=== PATIENT | male | born 1970 | race Caucasian/White ===

== ENCOUNTER 2020-04-12 08:45 | Outpatient (CLI) | payer OTHER, SELFPAY ==
[2020-04-13 22:57] LABS: SARS-CoV-2 RNA Undetected (Undetected); SARS-CoV-2 Specimen Source Nasopharynx
== END 2020-04-12 09:05 ==
PROVIDERS: Visit Provider Internal Medicine
DX: Z11.59 Encounter for screening for other viral diseases (principal)
CPT/HCPCS: U0003

== ENCOUNTER 2022-10-13 08:18 | Day surgery (SDC) | payer BC, SELFPAY ==
[2022-10-13] VITALS (42 sets, daily range): BP systolic 124–137; BP diastolic 74–87; PULSE 65–79; RESP 13–18; TEMP 36.6–37; O2SAT 94–100; BMI 29.5
--- NOTE | 2022-10-13 08:29 | W.ED.GENAD ---
Discharge Plan Disposition Patient Disposition: Admit to [facility] Condition: Stable Discharge Details Clinical Impression: Fracture dislocation of right ankle Attending Provider: Rajesh Vergara Primary Care Provider: Unknown,Unknown ED Provider: Mina Fernández Medical Decision Making Patient presenting with slip and fall with obvious fracture/dislocation of the right ankle. He is neurovascularly intact. He denies pain elsewhere and has unremarkable exam otherwise. He has not ate since last night. He has no significant past medical history other than hypercholesterolemia and ACL repair on the left. He received 10 of morphine in the field. IV is in place. Fluids started. X-rays ordered. Discussed with orthopedics, pending x-rays may just take directly to the OR. Patient received 100 mcgs of fentanyl here. X-rays obtained and confirmed fracture dislocation with bimalleolar fracture per my read. EKG interpreted by me, sinus rhythm with normal axis and normal EKG. Discussed with Dr. Vergara. Will reduce here in splint and he will plan OR later this afternoon. Discussed with patient. Hematoma block performed by me. Repeat dose of fentanyl 100 mcg given. Dislocation reduced by me without complication. Patient remains neurovascularly intact. Posterior splint applied. Postreduction films pending. Patient will be kept n.p.o. and given maintenance fluids until OR this afternoon. Post reduction film shows medial malleolus bone fragment remains in the joint space. Talus remains subluxed but not completely dislocated and there is better alignment laterally. However, clearly not a complete reduction. Patient is more comfortable. He remains neurovascularly intact. He has been taken to day surgery for preop. Imaging Data Radiologic Study: Attestation: I personally reviewed and interpreted this imaging study as follows: Imaging: X-Ray My impression: bimalleolar fracture with dislocation right ankle ECG Data Attestation: I personally reviewed and interpreted this ECG (s) as follows: Prior ECG tracings: not available for review Interpretation: see EKG HPI General Mode of arrival: EMS. Date/Time Provider Initiated Documentation: 10/13/22 08:26. Limitations to Documentation: no limitations. Information obtained by: patient. HPI Narrative: Patient presents to the ED status post slip and fall on the ice. Patient sustained injury to the right ankle with obvious deformity. EMS has given him 10 of morphine and splinted right lower extremity. Patient denies striking his head. He denies any other injury or pain elsewhere. He has not had anything orally since last night. Related Data Home Medications Medication Instructions Recorded Confirmed simvastatin 40 mg tablet 40 mg PO DAILY 10/13/22 10/13/22 Allergies Allergy/AdvReac Type Severity Reaction Status Date / Time Penicillins Allergy Unknown Unverified 10/13/22 10:25 General Stated Complaint: Orthopedic NATALIA: 2 Review of Systems Narrative: per HPI PFSH All Active Problems (Updated 10/13/22 @ 08:53 by Mina Fernández MD) Fracture dislocation of right ankle (Acute) Medical History (Updated 10/13/22 @ 08:53 by Mina Fernández MD) Hypercholesterolemia Surgical History S/P ACL repair Social History Smoking/Tobacco Use Status: Never Smoking risk assessment performed?: Yes Alcohol Intake: current Alcohol Intake frequency: holidays/special occasions only Drug use: Never Substance use type: does not use Do you feel safe at home: Yes Do you feel safe in your relationship?: Yes Exam Narrative Exam Narrative: Const: WDWN male in NAD. HEENT: NC/AT. Normal facial exam. Eyes: Normal conjunctiva and sclera. Neck: Supple. Trachea midline. Lungs: Normal respiratory effort. Cor: RRR. Good distal pulses. Neuro: A+O x 3. Normal speech, mentation, gait. Cranial nerves II - XII grossly intact. No gross motor or sensory deficit. Ext: No C/C/E. Obvious deformity with likely fracture-dislocation of right ankle. NVI with sensation, strength and pulses. Proximal RLE normal. Skin: Warm and dry without wound. Course Vital Signs Vital signs: Respiratory Effort Normal, Non-Labored 10/13/22 08:20 Procedures Orthopedic Joint Reduction Joint #1: Time Out Performed: Yes Side: right Joint Reduction Location: ankle Analgesia: hematoma block Local Anesthesia: Lidocaine 1% and Bupivicaine 0.5% Amount of anesthesic used (mL): 12 Technique used: traction/counter-traction Post-reduction neuro exam: intact Post-reduction vascular: intact Post Reduction X-Ray Obtained: Yes Post Reduction X-Ray Results: other (remains subluxed with bone fragment lying in joint space) Splint Applied: Yes Patient Tolerated Procedure: well and no complications Orthopedic Splinting/Casting Injury #1: Side: right Lower Extremity Injury Location: ankle Lower Extremity Immobilizer: posterior splint PAWSS Have you Been Recently Intoxicated or Drunk Within the Last 30 days?: No Have you Ever Experienced Previous Episodes of Alcohol Withdrawal?: No Have you ever Experienced Withdrawal Seizures?: No Have you ever Experienced Delirium Tremens(DT)s?: No Have you ever undergone Alcohol Rehabilitation Treatment (i.e, inpt ot outpatient treatment programs)?: No Have you ever Experienced Blackouts?: No Have you ever Combined Alcohol with other Downers within the last 90 days?: No Have you ever Combined Alcohol with any other Substance of Abuse during the last 90 days?: No Positive Blood Alcohol level on Presentation? [PCS.BAL]: No Evidence of Increased Autonomic Activity (i.e. HR>120, tremor, sweating, agitation, nausea)?: No Result: 0
[2022-10-13] MEDS: Lactated Ringers 1,000 ML 200 ML IV (08:34)
--- NOTE | 2022-10-13 08:34 | DI.RAD_ITS ---
Exam(s) XR ANKLE RT 2V EXAM: XR ANKLE RT 2V CLINICAL HISTORY: Injury W/ deformity. TECHNIQUE: 2D digital imaging was performed of the right ankle. Two images were obtained. AP and l ateral views were obtained. COMPARISON: No exams were available for comparison FINDINGS: BONES: There is an acute oblique fracture through the distal fibula with lateral and posterior angula tion of the distal fracture. There is also medially displaced fracture through the base of the media l malleolus. No bony destructive lesion is seen. JOINTS: There is a posterior and lateral dislocation of the ankle. SOFT TISSUE: There is soft tissue swelling of the ankle. IMPRESSION: Bimalleolar fracture dislocation of the ankle. DATA REPOSITORY: RADIATION DOSE DELIVERED:
[2022-10-13] MEDS: fentaNYL 100 MCG/2 ML VIAL IVP ×2 (08:41→09:30)
--- NOTE | 2022-10-13 08:45 | RT.EKG_ITS ---
APPROVED REPORT Exam: Resting ECG Reason for Exam: pre-op Patient Location: E HR:71 bpm ECG Measurements Heart Rate 71 AXIS ID 144 P 51 QRSd 94 QRS -19 QT 410 T 9 QTc 444 Conclusion Sinus rhythm...normal P axis, V-rate 60- 99 Normal [place] I have reviewed and interpreted ECG and agree with software generated interpretation. Normal Electrocardiogram
--- NOTE | 2022-10-13 09:09 | NUR.NOTE ---
pts PO intake was last night
--- NOTE | 2022-10-13 09:10 | W.ORTHOCONSU ---
Date of service: 10/13/22 Time of Service: 12:00 Assessment and Plan Assessment and plan (1) Fracture dislocation of right ankle: Status: Acute Assessment and plan: 52-year-old male with right ankle fracture dislocation Patient describes slip and fall this morning injuring right ankle with obvious deformity. Skin was tenting in the emergency department where they attempted reduction, which was marginally successful in reducing the joint but did take pressure off the skin. Prior ambulator, active, no prior ankle issues or problems. Denies any medical problems. Review of systems negative. Rash to penicillin in the past. Right leg foot and ankle examined around emergency room posterior small splint. Significant numbness deep peroneal nerves first webspace. Otherwise only mild numbness largely intact plantar foot tibial nerve and remainder of superficial peroneal nerve dorsal foot. Able to demonstrate intact motor wiggling all toes weakly. No acute distress or significant discomfort with passive stretch. Splint left on, will examine skin and operating room. Proximal leg knee and remainder of body without injury. Right ankle x-rays reviewed showing lateral ankle dislocation with fracture of medial and lateral malleoli. The medial malleolus is possibly incarcerated in the joint. There is questionably widening at the tib-fib joint at about the level of the fracture which is at the syndesmosis. It is difficult to scrutinize the posterior malleolus given the dislocation, but I do not appreciate any significant posterior malleolus fracture. Discussed thoroughly with patient. Need for right ankle reduction and fixation for complex fracture dislocation. He is comfortable at this time. No signs of compartment syndrome. Skin pressure was apparently removed after partial ER reduction. Will need to monitor nerve injury probably neuropraxia from stretch given dislocation of deep peroneal nerve expecting resolution with time. Plan for discharge home later today as long as remains comfortable and appropriate with instructions for strict elevation through the weekend. Decision to proceed with surgery today right ankle and possibly syndesmosis ORIF The risks, benefits, and alternatives were thoroughly discussed. Patient was counseled regarding pain management, expected postoperative course, and recovery timeline. All questions were answered. Informed consent was obtained. Agree and understand treatment plan. Follow up 10-14 days after surgery. Will call if any changes or concerns. Breathing comfortably on room air. No coughs or wheezes. 2+ right radial pulse. Regular rate and rhythm. PFSH All Active Problems (Updated 10/13/22 @ 12:45 by Rajesh Vergara MD) Fracture dislocation of right ankle (Acute 10/13/22) Medical History (Updated 10/13/22 @ 12:45 by Rajesh Vergara MD) Hypercholesterolemia Surgical History S/P ACL repair Social History Smoking/Tobacco Use Status: Never Smoking risk assessment performed?: Yes Alcohol Intake: current Alcohol Intake frequency: holidays/special occasions only Alcohol type: beer, wine and hard liquor Drug use: Never Substance use type: does not use Details: alcohol: t-1, one beer Do you feel safe at home: Yes Do you feel safe in your relationship?: Yes
--- NOTE | 2022-10-13 09:30 | DI.RAD_ITS ---
Exam(s) XR ANKLE RT 2V EXAM: XR ANKLE RT 2V CLINICAL HISTORY: post reduction. TECHNIQUE: 2D digital imaging was performed of the right ankle. Three images were obtained. AP and lateral views were obtained. COMPARISON: CR XR ANKLE RT 2V from 10/13/2022 FINDINGS: BONES: There has been some improvement in the alignment of the right ankle fracture dislocation but t here is persistent posterior dislocation of the ankle noted. There is persistent displacement of the distal fibular and medial malleolar fractures. No bony destructive lesion is seen. JOINTS: The ankle mortise is normally aligned. SOFT TISSUE: There is soft tissue swelling of the ankle. IMPRESSION: The there has been some improvement of the right ankle fracture dislocation there is persistent of sanchez bluxation of the tibial talar joint as described above. DATA REPOSITORY: RADIATION DOSE DELIVERED:
--- NOTE | 2022-10-13 09:40 | NUR.NOTE ---
pts right ankle reduced by MD Fernández, this RN present and assisted with procedure. sensation and pulse intact. pt able to move toes. splint in place until surgery.
--- NOTE | 2022-10-13 09:59 | NUR.NOTE ---
report called to [employer]
--- NOTE | 2022-10-13 10:03 | NUR.NOTE ---
pt last voided at 0700 this am
[2022-10-13 10:11] LABS: Source Nasal/Nares
--- OUTSIDE RECORDS SUMMARY | 2022-10-13 10:12 | XMS_ITS ---
Author Name Mary Alice Taqueria Address [address], [place] [id number] [facility] Address [address], [place] [id number] Care Team Providers Care Automation Engineering Manager Name Role Phone Taqueria Wheat Unavailable [phone] PROBLEMS Type Condition ICD9-CM Code [id number] Code Onset Dates Condition Status SNOMED Code Problem Pure hypercholesterolemia, unspecified E78.00 Active 823623887 Problem Gastro-esophageal re flux disease without esophagitis K21.9 Active 317769842 Problem Pure hypercholesterolemia 272.0 Active 8724387 04 Problem Pure hypercholesterolemia E78.0 Active 0288052 04 ALLERGIES Substance Reaction Event Type Date Status Penicillin G Benzathine Unknown Drug Allergy Feb, Active ENCOUNTERS Encounter Location Date Diagnosis [facility] [address] [place] [id number] Feb, Fever, unspecified R50.9 [facility] [address] [id number] Dec, Encounter for general adult medical examination without abnormal findings Z00.00 ; Pure hypercholesterolemia, unspecified E78.00 and Disorder of the skin and subcutaneous tissue, unspecified L98.9 [facility] [address] [id number] Jun, Pure hypercholesterolemia, unspecified E78.00 [facility] [address] [id number] 13 Dec, 2020 Encounter for general adult medical examination without abnormal findings Z00.00 and Pure hypercholesterolemia, unspecified E78.00 [facility] [address] [place] [id number] Apr, Contact with and (suspected) exposure to other viral communicable diseases Z20.828 [facility] [address] [place] [id number] Dec, Encounter for general adult medical examination without abnormal findings Z00.00 and Pure hypercholesterolemia, unspecified E78.00 [facility] [address] [place] [id number] Jul, Acute bronchitis, unspecifie d J20.9 and Encounter for immunization Z23 [facility] [address] [place] [id number] Apr, [facility] [address] [place] [id number] Nov, Encounter for general adult medical examination with abnormal findings Z00.01 ; Pure hypercholesterolemia, unspecified E78.00 and Sprain of right rotator cuff capsule, initial encounter S43.421A [facility] [address] [place] [id number] Dec, [facility] [address] [place] [id number] Nov, Encounter for general adult medical examination with abnormal findings Z00.01 ; Pure hypercholesterolemia, unspecified E78.00 and Gastro-esophageal reflux disease without esophagitis K21.9 [facility] [address] [place] [id number] Nov, Pure hypercholesterolemia E7 8.0 and Encounter for general adult medical examination without abnormal findings Z00.00 [facility] [address] [place] [id number] Oct, Encounter for general adult medical examination without abnormal findings Z00.00 and Pure hypercholesterolemia E78.0 [facility] [address] [place] [id number] Sep, [facility] [address] [place] [id number] Sep, [facility] [address] [place] [id number] Apr, Rash and other nonspecific s kin eruption 782.1 [facility] [address] [place], [place] [id number] Oct, [facility] [address] [place], [place] [id number] Jul, Routine general medical examination at health care facility V70.0 and Pure hypercholesterolemia 272.0 [facility] [address] [place], [place] [id number] Jun, Routine general medical examination at health care facility V70.0 and Pure hypercholesterolemia 272.0 [facility] [address] [place], [place] [id number] Oct, Fever, unspecified 780.60 [facility] [address] [place], [place] [id number] Apr, Routine general medical examination at health care facility V70.0 and Pure hypercholesterolemia 272.0 IMMUNIZATIONS Vaccine Route Administration Date Status Influenza (split) Unknown Jul 10, 2019 Administer ed Influenza (split) Unknown Jun 15, 2014 Administer ed DT Unknown Sep 01, 2008 Administered SOCIAL HISTORY Qualifiers Date Never Smoker REASON FOR REFERRAL FUNCTIONAL STATUS PLAN OF CARE Activity Details VITAL SIGNS Temperature 101.4 degrees Fahrenheit 2022-02 Temperature 97.8 degrees Fahrenheit Temperature 97.8 degrees Fahrenheit Temperature 101.0 degrees Fahrenheit 2012-10 Heart Rate 72 /min 2012-05-03 Height 69 in 2022-02-07 Height 69 in 2021-12-15 Height 69 in 2020-12-14 Height 69 in 2019-12-09 Height 69 in 2019-07-10 Height 69 in 2018-11-27 Height 69 in 2017-11-20 Height 69 in 2016-11-20 Height 69 in 2015-10-19 Height 69 in 2015-04-06 Height 69 in 2014-07-16 Height N/A in 2013-06-27 Height 69 in 2012-10-22 Height 69 in 2012-05-03 Weight 185 lbs 2022-02-07 Weight 195 lbs 2021-12-15 Weight 190 lbs 2020-12-14 Weight 187 lbs 2019-12-09 Weight 185 lbs 2019-07-10 Weight 183 lbs 2018-11-27 Weight 183 lbs 2017-11-20 Weight 186 lbs 2016-11-20 Weight 192 lbs 2015-10-19 Weight 195 lbs 2015-04-06 Weight 195 lbs 2014-07-16 Weight 200 lbs 2013-06-27 Weight 190 lbs 2012-10-22 Weight 185 lbs 2012-05-03 BMI 27.32 kg/m2 2022-02-07 BMI 28.79 kg/m2 2021-12-15 BMI 28.06 kg/m2 2020-12-14 BMI 27.61 kg/m2 2019-12-09 BMI 27.32 kg/m2 2019-07-10 BMI 27.02 kg/m2 2018-11-27 BMI 27.02 kg/m2 2017-11-20 BMI 27.46 kg/m2 2016-11-20 BMI 28.35 kg/m2 2015-10-19 BMI 28.79 kg/m2 2015-04-06 BMI 28.79 kg/m2 2014-07-16 BMI 29.53 kg/m2 2013-06-27 BMI 28.06 kg/m2 2012-10-22 BMI 27.32 kg/m2 2012-05-03 Oximetry 94 % 2022-02-07 Blood pressure systolic 126 mm Hg Blood pressure diastolic 82 mm Hg 2022-02 MEDICATIONS Medication Instructions Dosage Frequency Start Date End Date Duration Status Doxycycline Hyclate 100 MG Orally Twice a day 1 tablet 12h Feb, 14 days Active Simvastatin 40 MG Orally Once a day 1 tablet in the evening 24h 90 days Active PROCEDURES Procedure Date Ordered Result Body Site VENIPUNCT, ROUTINE* November 20, 2016 VENIPUNCT, ROUTINE* November 20, 2017 VENIPUNCT, ROUTINE* May 03, 2012 URINALYSIS- COMPLETE Jun 27, 2013 URINALYSIS- COMPLETE Jul 16, 2014 URINALYSIS- COMPLETE November 20, 2017 IMMUNIZATION ADMIN Jul 10, 2019 VENIPUNCT, ROUTINE* Jun 27, 2013 LIPID PANEL May 03, 2012 VENIPUNCT, ROUTINE* Jul 16, 2014 VENIPUNCT, ROUTINE* Oct 19, 2015 LIPID PANEL Jun 27, 2013 LIPID PANEL Jul 16, 2014 LIPID PANEL Oct 19, 2015 General Health Panel Jul 16, 2014 LIPID PANEL November 20, 2016 General Health Panel Oct 19, 2015 LIPID PANEL November 20, 2017 General Health Panel Jun 27, 2013 ASSAY THYROID STIM HORMONE May 03, 2012 COMPLETE CBC W/AUTO DIFF WBC May 03, 2012 General Health Panel November 20, 2016 CCIIV4 VACC ABX FREE IM Jul 10, 2019 URINALYSIS- COMPLETE May 03, 2012 General Health Panel November 20, 2017 COMPREHEN METABOLIC PANEL May 03, 2012 URINALYSIS- COMPLETE November 20, 2016 URINALYSIS- COMPLETE Oct 19, 2015 RESULTS Name Result Date Reference Range CBC, WITH MANUAL DIFF 2022-02-07 MANUAL DIFF MANUAL DIFFERENTIAL SEGS 78 42-75 BANDS 11 0-6 LYMPHS 5 20-51 RISSA. LYMPHS <=1 MONOS 6 2-9 EOS 0-3 BASO 0-1 METAS MYELOS NRBC PLT ESTIMATE GREATLY DECREASED ADEQUATE RBC MORPH NORMAL NORMAL ANISO POIK MICRO MACRO HYPO POLYCHROM LYME AB/WESTERN BLOT REFLEX 2022-02-07 CBC, WITH AUTO DIFF 2021-12-15 COMPREHENSIVE METABOLIC PROFILE 2021-12-15 ALBUMIN 4.3 3.5-5.0 ALKALINE PHOS 75 38-130 A/GAP 11.0 3.0-12.0 B/CR 18.2 8.0-20.0 OSMOLARITY 277 275-295 GLOBULIN 2.5 2.3-3.5 A/G 1.7 1.0-2.5 LIPID PROFILE 2021-12-15 LDL (CALCULATED) 186 RISK RATIO 5.3 RISK INTERP RISK MALE FEMALE 1/2 average 3.4 3.3 Average 5.0 4.4 2x Average 9.6 7.1 3x Average 23.4 11.0 TSH 2021-12-15 TSH 1.97 0.45-5.33 CBC, WITH AUTO DIFF 2020-12-14 COMPREHENSIVE METABOLIC PROFILE 2020-12-14 ALBUMIN 4.1 3.5-5.0 ALKALINE PHOS 78 32-92 A/GAP 7.0 3.0-12.0 B/CR 13.7 8.0-20.0 OSMOLARITY 274 275-295 GLOBULIN 2.5 2.3-3.5 A/G 1.6 1.0-2.5 LIPID PROFILE 2020-12-14 LDL (CALCULATED) 148 RISK RATIO 3.9 RISK INTERP RISK MALE FEMALE 1/2 average 3.4 3.3 Average 5.0 4.4 2x Average 9.6 7.1 3x Average 23.4 11.0 TSH 2020-12-14 TSH 1.20 0.45-5.33 CBC, WITH AUTO DIFF 2019-12-09 COMPREHENSIVE METABOLIC PROFILE 2019-12-09 ALBUMIN 4.0 3.5-5.0 ALKALINE PHOS 73 32-92 A/GAP 8.0 3.0-12.0 B/CR 22.5 8.0-20.0 OSMOLARITY 279 275-295 GLOBULIN 2.7 2.3-3.5 A/G 1.5 1.0-2.5 LIPID PROFILE 2019-12-09 LDL (CALCULATED) 136 RISK RATIO 4.3 RISK INTERP RISK MALE FEMALE 1/2 average 3.4 3.3 Average 5.0 4.4 2x Average 9.6 7.1 3x Average 23.4 11.0 TSH 2019-12-09 TSH 1.38 0.45-5.33 CBC, WITH AUTO DIFF 2018-11-27 COMPREHENSIVE METABOLIC PROFILE 2018-11-27 ALBUMIN 4.3 3.5-5.0 ALKALINE PHOS 84 32-92 A/GAP 8.0 3.0-12.0 B/CR 21.7 8.0-20.0 OSMOLARITY 279 275-295 GLOBULIN 3.1 2.3-3.5 A/G 1.4 1.0-2.5 LIPID PROFILE 2018-11-27 LDL (CALCULATED) 158 RISK RATIO 4.2 TSH 2018-11-27 TSH 2.00 0.45-5.33 COMPREHENSIVE METABOLIC PANEL 2017-11-20 GLUCOSE 103 65-99 UREA NITROGEN (BUN) 20 7-25 CREATININE 0.82 0.60-1.35 eGFR NON-AFR. [place] 107 >OR = 60 eGFR 124 >OR = 60 BUN/CREATININE RATIO NOT APPLICABLE 6-22 SODIUM 138 135-146 POTASSIUM 4.1 3.5-5.3 CHLORIDE 99 98-110 CARBON DIOXIDE 24 20-31 CALCIUM 9.6 8.6-10.3 PROTEIN, TOTAL 7.0 6.1-8.1 ALBUMIN 4.7 3.6-5.1 GLOBULIN 2.3 1.9-3.7 ALBUMIN/GLOBULIN RATIO 2.0 1.0-2 .5 BILIRUBIN, TOTAL 1.1 0.2-1.2 ALKALINE PHOSPHATASE 78 40-115 AST 21 10-40 ALT 20 9-46 CBC (INCLUDES DIFF/PLT) 2017-11-20 WHITE BLOOD CELL COUNT 16.5 3.8-1 0.8 RED BLOOD CELL COUNT 5.09 4.20-5. 80 HEMOGLOBIN 16.4 13.2-17.1 HEMATOCRIT 49.6 38.5-50.0 MCV 97.5 80.0-100.0 MCH 32.3 27.0-33.0 MCHC 33.1 32.0-36.0 RDW 13.3 11.0-15.0 PLATELET COUNT 157 140-400 MPV 12.0 7.5-12.5 ABSOLUTE NEUTROPHILS 05448 1500-78 00 ABSOLUTE LYMPHOCYTES 858 850-390 0 ABSOLUTE MONOCYTES 1122 200-950 ABSOLUTE EOSINOPHILS 0 15-500 ABSOLUTE BASOPHILS 66 0-200 NEUTROPHILS 87.6 LYMPHOCYTES 5.2 MONOCYTES 6.8 EOSINOPHILS 0.0 BASOPHILS 0.4 LIPID PANEL 2017-11-20 CHOLESTEROL, TOTAL 220 <200 HDL CHOLESTEROL 61 >40 TRIGLYCERIDES 100 <150 LDL-CHOLESTEROL 138 CHOL/HDLC RATIO 3.6 <5.0 NON HDL CHOLESTEROL 159 <130 TSH 2017-11-20 TSH 2.01 0.40-4.50 COMPREHENSIVE METABOLIC PANEL 2016-11-20 GLUCOSE 87 65-99 UREA NITROGEN (BUN) 21 7-25 CREATININE 1.00 0.60-1.35 eGFR NON-AFR. [place] 91 >OR = 60 eGFR 106 >OR = 60 BUN/CREATININE RATIO NOT APPLICABLE 6-22 SODIUM 141 135-146 POTASSIUM 4.2 3.5-5.3 CHLORIDE 105 98-110 CARBON DIOXIDE 26 20-31 CALCIUM 9.6 8.6-10.3 PROTEIN, TOTAL 6.7 6.1-8.1 ALBUMIN 4.5 3.6-5.1 GLOBULIN 2.2 1.9-3.7 ALBUMIN/GLOBULIN RATIO 2.0 1.0-2 .5 BILIRUBIN, TOTAL 1.1 0.2-1.2 ALKALINE PHOSPHATASE 67 40-115 AST 18 10-40 ALT 22 9-46 CBC (INCLUDES DIFF/PLT) 2016-11-20 WHITE BLOOD CELL COUNT 4.8 3.8-1 0.8 RED BLOOD CELL COUNT 4.94 4.20-5. 80 HEMOGLOBIN 15.9 13.2-17.1 HEMATOCRIT 48.3 38.5-50.0 MCV 97.6 80.0-100.0 MCH 32.2 27.0-33.0 MCHC 33.0 32.0-36.0 RDW 13.7 11.0-15.0 PLATELET COUNT 143 140-400 MPV 12.4 7.5-12.5 ABSOLUTE NEUTROPHILS 3091 1500-78 00 ABSOLUTE LYMPHOCYTES 1195 850-390 0 ABSOLUTE MONOCYTES 374 200-950 ABSOLUTE EOSINOPHILS 101 15-500 ABSOLUTE BASOPHILS 38 0-200 NEUTROPHILS 64.4 LYMPHOCYTES 24.9 MONOCYTES 7.8 EOSINOPHILS 2.1 BASOPHILS 0.8 LIPID PANEL 2016-11-20 CHOLESTEROL, TOTAL 239 125-200 HDL CHOLESTEROL 54 >OR = 40 TRIGLYCERIDES 153 <150 LDL-CHOLESTEROL 154 <130 CHOL/HDLC RATIO 4.4 < OR = 5.0 NON HDL CHOLESTEROL 185 TSH 2016-11-20 TSH 1.68 0.40-4.50 COMPREHENSIVE METABOLIC PANEL 2015-10-19 GLUCOSE 90 65-99 UREA NITROGEN (BUN) 16 7-25 CREATININE 1.00 0.60-1.35 eGFR NON-AFR. [place] 92 >OR = 60 eGFR 106 >OR = 60 BUN/CREATININE RATIO NOT APPLICABLE 6-22 SODIUM 139 135-146 POTASSIUM 4.1 3.5-5.3 CHLORIDE 102 98-110 CARBON DIOXIDE 25 19-30 CALCIUM 9.5 8.6-10.3 PROTEIN, TOTAL 7.3 6.1-8.1 ALBUMIN 4.7 3.6-5.1 GLOBULIN 2.6 1.9-3.7 ALBUMIN/GLOBULIN RATIO 1.8 1.0-2 .5 BILIRUBIN, TOTAL 1.3 0.2-1.2 ALKALINE PHOSPHATASE 81 40-115 AST 19 10-40 ALT 20 9-46 CBC (INCLUDES DIFF/PLT) 2015-10-19 WHITE BLOOD CELL COUNT 6.7 3.8-1 0.8 RED BLOOD CELL COUNT 5.18 4.20-5. 80 HEMOGLOBIN 16.4 13.2-17.1 HEMATOCRIT 51.0 38.5-50.0 MCV 98.5 80.0-100.0 MCH 31.7 27.0-33.0 MCHC 32.2 32.0-36.0 RDW 13.7 11.0-15.0 PLATELET COUNT 168 140-400 MPV 11.8 7.5-11.5 ABSOLUTE NEUTROPHILS 4348 1500-78 00 ABSOLUTE LYMPHOCYTES 1548 850-390 0 ABSOLUTE MONOCYTES 643 200-950 ABSOLUTE EOSINOPHILS 114 15-500 ABSOLUTE BASOPHILS 47 0-200 NEUTROPHILS 64.9 LYMPHOCYTES 23.1 MONOCYTES 9.6 EOSINOPHILS 1.7 BASOPHILS 0.7 LIPID PANEL 2015-10-19 CHOLESTEROL, TOTAL 226 125-200 HDL CHOLESTEROL 54 >OR = 40 TRIGLYCERIDES 119 <150 LDL-CHOLESTEROL 148 <130 CHOL/HDLC RATIO 4.2 < OR = 5.0 NON HDL CHOLESTEROL 172 TSH 2015-10-19 TSH 1.87 0.40-4.50 COMPREHENSIVE METABOLIC PANEL 2014-07-16 GLUCOSE 61 65-99 UREA NITROGEN (BUN) 17 7-25 CREATININE 0.95 0.60-1.35 eGFR NON-AFR. [place] 98 >OR = 60 eGFR 114 >OR = 60 BUN/CREATININE RATIO NOT APPLICABLE 6-22 SODIUM 140 135-146 POTASSIUM 3.9 3.5-5.3 CHLORIDE 103 98-110 CARBON DIOXIDE 27 19-30 CALCIUM 9.6 8.6-10.3 PROTEIN, TOTAL 6.9 6.1-8.1 ALBUMIN 4.7 3.6-5.1 GLOBULIN 2.2 1.9-3.7 ALBUMIN/GLOBULIN RATIO 2.1 1.0-2 .5 BILIRUBIN, TOTAL 1.2 0.2-1.2 ALKALINE PHOSPHATASE 71 40-115 AST 19 10-40 ALT 21 9-46 CBC (INCLUDES DIFF/PLT) 2014-07-16 WHITE BLOOD CELL COUNT 6.9 3.8-1 0.8 RED BLOOD CELL COUNT 5.04 4.20-5. 80 HEMOGLOBIN 16.1 13.2-17.1 HEMATOCRIT 48.2 38.5-50.0 MCV 95.6 80.0-100.0 MCH 32.0 27.0-33.0 MCHC 33.5 32.0-36.0 RDW 13.5 11.0-15.0 PLATELET COUNT 152 140-400 MPV 11.2 7.5-11.5 ABSOLUTE NEUTROPHILS 4409 1500-78 00 ABSOLUTE LYMPHOCYTES 1649 850-390 0 ABSOLUTE MONOCYTES 690 200-950 ABSOLUTE EOSINOPHILS 97 15-500 ABSOLUTE BASOPHILS 55 0-200 NEUTROPHILS 63.9 LYMPHOCYTES 23.9 MONOCYTES 10.0 EOSINOPHILS 1.4 BASOPHILS 0.8 LIPID PANEL 2014-07-16 CHOLESTEROL, TOTAL 212 125-200 HDL CHOLESTEROL 50 >OR = 40 TRIGLYCERIDES 143 <150 LDL-CHOLESTEROL 133 <130 CHOL/HDLC RATIO 4.2 < OR = 5.0 NON HDL CHOLESTEROL 162 TSH 2014-07-16 TSH 1.69 0.40-4.50 COMPREHENSIVE METABOLIC PANEL 2013-06-27 GLUCOSE 87 65-99 UREA NITROGEN (BUN) 15 7-25 CREATININE 0.96 0.60-1.35 eGFR NON-AFR. [place] 98 >OR = 60 eGFR 113 >OR = 60 BUN/CREATININE RATIO NOT APPLICABLE 6-22 SODIUM 141 135-146 POTASSIUM 4.4 3.5-5.3 CHLORIDE 104 98-110 CARBON DIOXIDE 24 19-30 CALCIUM 9.7 8.6-10.3 PROTEIN, TOTAL 7.4 6.1-8.1 ALBUMIN 4.8 3.6-5.1 GLOBULIN 2.6 1.9-3.7 ALBUMIN/GLOBULIN RATIO 1.8 1.0-2 .5 BILIRUBIN, TOTAL 1.0 0.2-1.2 ALKALINE PHOSPHATASE 79 40-115 AST 19 10-40 ALT 22 9-46 CBC (INCLUDES DIFF/PLT) 2013-06-27 WHITE BLOOD CELL COUNT 6.6 3.8-1 0.8 RED BLOOD CELL COUNT 5.21 4.20-5. 80 HEMOGLOBIN 16.5 13.2-17.1 HEMATOCRIT 50.6 38.5-50.0 MCV 97.3 80.0-100.0 MCH 31.6 27.0-33.0 MCHC 32.5 32.0-36.0 RDW 13.0 11.0-15.0 PLATELET COUNT 166 140-400 MPV 12.1 7.5-11.5 ABSOLUTE NEUTROPHILS 4224 1500-78 00 ABSOLUTE LYMPHOCYTES 1637 850-390 0 ABSOLUTE MONOCYTES 574 200-950 ABSOLUTE EOSINOPHILS 139 15-500 ABSOLUTE BASOPHILS 26 0-200 NEUTROPHILS 64.0 LYMPHOCYTES 24.8 MONOCYTES 8.7 EOSINOPHILS 2.1 BASOPHILS 0.4 LIPID PANEL 2013-06-27 CHOLESTEROL, TOTAL 221 125-200 HDL CHOLESTEROL 51 >OR = 40 TRIGLYCERIDES 105 <150 LDL-CHOLESTEROL 149 <130 CHOL/HDLC RATIO 4.3 < OR = 5.0 NON HDL CHOLESTEROL 170 TSH 2013-06-27 TSH 1.40 0.40-4.50 COMPREHENSIVE METABOLIC PROFILE 2012-05-03 SODIUM 137 136-145 POTASSIUM 5.2 3.5-5.1 CHLORIDE 103 99-108 CO2 27 21-31 CALCIUM 9.5 8.4-10.2 GLUCOSE 85 70-105 BLOOD UREA NITROGEN 20 7-22 CREATININE 0.94 0.40-1.10 TOTAL BILIRUBIN 1.6 0.2-1.2 TOTAL PROTEIN 7.2 6.4-8.3 ALBUMIN 4.5 3.5-5.0 ALKALINE PHOSPHATASE 68 32-92 ALT 29 10-40 AST 27 10-42 ANION GAP 7.0 3.0-12.0 BUN/CREATININE RATIO 21.3 8.0-20. 0 OSMOLARITY 276 275-295 GLOBULIN 2.7 2.3-3.5 ALBUMIN/GLOBULIN RATIO 1.7 1.0-2 .5 LIPID PROFILE 2012-05-03 CHOLESTEROL 232 129-209 TRIGLYCERIDES 117 48-210 HDL CHOLESTEROL 46 31-76 LDL (CALCULATED) 163.1 10.0-100.0 RISK RATIO 5.0 TSH 2012-05-03 THYROID STIMULATING HORMONE 2.77 0.34-5.60 REASON FOR VISIT high fever x 3 days, headaches and a rash x weeks, Annual, Annual, ZOOM for COVID , Annual, Has hada cold for 4 weeks, Annual, call back on labs, Annual, Annual, Annual, Re:RE:Wants to see you, Wants to see you, spot on skin, tick bite?, Annual, Annual, Fever since , cough, annual physical Insurance Providers Health Insurance Type Health Plan Insurance Address Health Plan Insurance Phone Health Plan Insurance Name Health Plan Coverage Dates Member ID Patient Relationship to Subscriber Patient Address Patient Phone Patient Name Patient Date of Subscriber ID Subscriber Name Subscriber Date of Group No Blue [employer] [place] [address] [place] [id number] [employer] [place] self Amado Zamora [id number] [employer] [place] [address] [place] [address] [employer] self Amado Zamora [id number]
[2022-10-13 10:58] LABS: COVID-19 PCR Negative (Negative)
--- NOTE | 2022-10-13 11:16 | W.ANESPRE ---
General Info Date of Service Date Performed: 10/13/22 Height: 5 ft 9 in Weight: 90.7 kg Body Mass Index (BMI): 29.5 Surgical Procedure: Operation Date: 10/13/22 11:55 Proposed Procedure Side Surgeon p Ankle ORIF Right Rajesh Vergara MD Meds Allergies and Home Medications Allergies Allergy/AdvReac Type Severity Reaction Status Date / Time Penicillins Allergy Unknown Unverified 10/13/22 10:25 Home Medication Medication Instructions Recorded aspirin 81 mg tablet,delayed 81 mg PO DAILY Prevent blood clot 10/13/22 release 30 days #30 tabs naproxen 250 mg tablet 250 - 500 mg PO BID PRN #40 tabs 10/13/22 oxycodone 5 mg tablet 5 - 10 mg PO Q4H PRN moderate to 10/13/22 severe pain #18 tabs simvastatin 40 mg tablet 40 mg PO DAILY 10/13/22 Current Visit Medications: Current Medications Generic Name Dose Route Start Last Admin Trade Name Freq PRN Reason Stop Dose Admin Ringer's Solution 1,000 mls @ 200 mls/hr 10/13/22 08:30 10/13/22 08:34 IV 200 mls/hr INFUSION LENNOX Administration Ringer's Solution 1,000 mls @ 75 mls/hr 10/13/22 06:00 IV 11/12/22 23:59 INFUSION LENNOX Cefazolin Sodium/Dextrose 2 gm in 50 mls @ 100 mls/hr 10/13/22 06:00 Ancef Duplex IVPB 11/12/22 23:59 PREOP LENNOX IV Miscellaneous Supplies 1 each 10/13/22 06:00 Iv Access IV 11/12/22 23:59 DIRECTED LENNOX Sodium Chloride 0 ml 10/13/22 06:00 Normal Saline Flush 10 Ml Syr IV 11/12/22 23:59 PRN PRN Sodium Chloride 0 ml 10/13/22 06:00 Normal Saline 10 Ml Vial IJ 11/12/22 23:59 DIRECTED PRN Sterile Water 0 ml 10/13/22 06:00 Water,Injection,Sterile 10 Ml Vial IJ 11/12/22 23:59 DIRECTED PRN PFSH Active Problems Active Problems: Problem Status Onset Code Fracture dislocation of right ankle S82.891A Medical History Medical History (Updated 10/13/22 @ 12:45 by Rajesh Vergara MD) Hypercholesterolemia Surgical History Surgical History S/P ACL repair Tobacco Smoking/Tobacco Use Status: Never Alcohol Alcohol Intake: current Alcohol intake frequency: holidays/special occasions only Alcohol type: beer, wine and hard liquor Substance Use Substance use: Never Substance use type: does not use Details: alcohol: t-1, one beer Vital Signs and Lab Results Vital Signs Most Recent Vital Signs in EMR: Most Recent Vital Signs Temp Pulse Resp BP Pulse Ox 36.6 C 77 18 133/87 98 10/13/22 10:37 10/13/22 10:37 10/13/22 10:37 10/13/22 10:37 10/13/22 10:37 Lab Results Blood Type / Crossmatch: No Data to Display Complete Blood Count: No Data to Display Complete Metabolic Panel: No Data to Display Liver Function Panel: No Data to Display Coagulation Panel: No Data to Display Cardiac Panel: No Data to Display Arterial Blood Gas: No Data to Display Venous Blood Gas: No Data to Display Pancreas Panel: No Data to Display Thyroid Panel: No Data to Display Infectious Disease: Coronavirus (COVID-19)(PCR) Negative (Negative) 10/13/22 10:00 Coronavirus 2019 Source Nasal/Nares 10/13/22 10:00 Blood Cultures: No Data to Display Toxicology Panel: No Data to Display Imaging and Studies Imaging and Studies Study information below may be from another EMR and interpreted by another provider. Please see original notes in EMR for more complete details. EKG Summary: 10/13/2022: Exam: Resting ECG Reason for Exam: pre-op Patient Location: E HR:71 bpm ECG Measurements Heart Rate 71 AXIS TN 144 P 51 QRSd 94 QRS -19 QT 410 T9 QTc 444 Conclusion Sinus rhythm...normal P axis, V-rate 60- 99 Normal [place] I have reviewed and interpreted ECG and agree with software generated interpretation. Normal Electrocardiogram Anesthesia Assessment and Plan Anesthesia History Personal History: No History of Anesthesia Complications Family History: No Family History of Anesthesia Complications Exercise Tolerance Exercise Tolerance: Metabolic Equivalents>4 Pertinent Negatives Pertinent Negatives: No Symptoms of GERD, No Major Cardiovascular Symptoms or Complaints and No Major Pulmonary Symptoms or Complaints Cardiac & Pulmonary Exam Cardiac Exam: Normal S1/S2 Heart Sounds Pulmonary Exam: Clear Bilateral Breath Sounds Implantable Cardiac Device Does patient have a Pacemaker or an ICD?: No Airway Exam Known Difficult Airway: No Mallampati Class: 2 Mouth Opening: Normal (> 3cm) Thyromental Distance: Greater than 3 cm Facial Hair: Full Diaz Neck Range of Motion: Full ROM Neck Circumference: Normal Teeth Condition: Normal Dentition ASA Classification ASA Score: ASA 2 Emergency Case?: Yes NPO Status NPO Status: NPO Clears >2 hours, Solids >8 hours Anesthesia Plan Resuscitation Status: Full Code Anesthesia Technique: Spinal Anesthesia Airway Planned: Natural Airway Pain Management: Surgeon and patient request nerve block (consented for rescue blocks post op prn) Monitors Used: Standard Monitors
--- NOTE | 2022-10-13 12:15 | DI.RAD_ITS ---
Exam(s) XR ANKLE RT 2V EXAM: XR ANKLE RT 2V CLINICAL HISTORY: RIGHT ANKLE FRACTURE TECHNIQUE: 2D and realtime digital imaging was performed. CONTRAST MATERIAL: Refer to procedure report. COMPARISON: CR XR ANKLE RT 2V from 10/13/2022 FINDINGS: Fluoroscopy was provided for Dr. Vergara during the performance of a reduction and internal fixation o f the right ankle fracture dislocation. Please refer to the procedure report for complete details. Ka,r=0.81 mGy IMPRESSION: RADIATION DOSE DELIVERED:
--- NOTE | 2022-10-13 12:50 | PDOC.DSDIS_ITS ---
Date of service: 10/13/22 Time of Service: 17:00 Discharge Plan Disposition Patient Disposition: Home Condition: Stable Discharge Details Reason For Visit: Foot Attending Provider: Rajesh Vergara Primary Care Provider: Unknown,Unknown Home Meds and New Rx's Prescriptions: New aspirin 81 mg tablet,delayed release (DR/EC) 81 mg PO DAILY 30 Days Qty: 30 0RF naproxen 250 mg tablet 250 - 500 mg PO BID PRNQty: 40 0RF Rx Instructions: take with a meal oxycodone 5 mg tablet 5 - 10 mg PO Q4H MDD 30 mg PRN (Reason: moderate to severe pain) Qty: 18 0RF Continued simvastatin 40 mg tablet 40 mg PO DAILY Discharge Instructions Additional Instructions: Surgery: Right ankle ORIF (trimalleolar fracture dislocation) Activity: Non-weightbearing with crutches at all times. STRICT elevation to minimize swelling and discomfort. Encourage wiggling toes to increase circulation prevent blood clot. Prescriptions: Aspirin 81 mg take 1 daily to prevent a blood clot for 30 days Naproxen 250 mg take 1-2 every 12 hours with a meal as needed for moderate pain Oxycodone 5 mg take 1-2 every 4-6 hours as needed for severe pain You may use [id number]-soycutf Tylenol (acetaminophen) as needed for mild pain. These pain medications may be taken all at once or in different combinations as needed. Also, recommend Colace (docusate) as a stool softener as surgery and pain me dicine cause constipation. You may try bour-pmy-tnhphue diphenhydramine (Benadryl) 25-50 mg nightly as a sleep aid Dressings: Leave splint and dressing in place until follow-up. Keep clean and dry at all times. Follow-up: 10-[address] Vergara You may take off the leg compression stockings this evening at home. You may also leave them on a few days longer if you have a history of leg swelling or edema. Let us know right away if you develop any redness, drainage, fevers, chest pain, or trouble breathing. Do not drink alcohol or drive for at least 24 hours after anesthesia. Please call the office during business hours with any questions or concerns. Discharge Orders Discharge Orders: Discharge Order (Routine); Ordered 10/13/22 Ordered By: Rajesh Vergara DS: Diagnosis Discharge Diagnosis (1) Fracture dislocation of right ankle: Status: Acute
--- NOTE | 2022-10-13 12:50 | W.PM.OP ---
Date of service: 10/13/22 Time of Service: 15:00 Operative Note Operative Note DATE OF PROCEDURE: 10/13/22 PRE-OP DIAGNOSIS: Right trimalleolar ankle fracture dislocation POST-OP DIAGNOSIS: same PROCEDURE: Right trimalleolar ankle ORIF, medial and lateral malleoli, CPT#47730 SURGEON: Rajesh Vergara [facility]ICAL [facility] HE[facility] SERVICES MANAGER: Lita Everett ANESTHESIA TYPE: Local By Surgeon and General LMA/ETT Refer to Anesthesia Record ESTIMATED BLOOD LOSS: 15 TOURNIQUET TIME: 0 COMPLICATIONS: None Patient was transported to: PACU Patient's condition: stable Implants: Synthes 1/3 tubular plate, 7 hole with 3 distal and 3 proximal screws. The most distal 2 screws are 4.0 mm cancellous. The remainder of the screws are 3.5 mm bicortical. Single 3.5 mm lag screw fibula. Single solid partially-threaded 4.0 mm x 35 mm length medial malleolus screw. Indications: Please see complete medical record for details. Procedure Description: In the operating room, spinal anesthesia was induced. The emergency room splint was removed. The ankle was obviously dislocated laterally with medial skin under pressure from bone below. The ankle was easily and atraumatically reduced with a gentle guided Tianna maneuver. It was maintained reduced for the remainder of the preparation for surgery. Skin was acceptable to proceed with surgery without too much swelling or skin breakdown medially. The patient was positioned supine on the operating room table. All bony prominences were well-padded. Preoperative antibiotics were administered. The right ankle was prepped and draped in the usual sterile fashion. The correct patient, procedure, and side of the procedure were all verified prior to incision. A longitudinal approach to the distal fibula fracture was marked out as well as a curvilinear approach to the medial malleolus fracture. Each was preinjected with 0.5% bupivacaine containing epinephrine. Given the excellent reduction via closed means, the fibula was approached first. Skin was incised followed by careful spreading and retraction of soft tissues to expose the fracture site which was gapped open, cleansed, removed of interposed soft tissue and readily reduced anatomically with bone clamps. The lateral aspect of the fibula was exposed bluntly proximally and distally to allow for plate fixation. A lag screw was then placed from anterior proximally to posterior distal across the fracture. Bone clamps removed and reduction maintained. A 7 hole plate was applied to the lateral fibula skipping the fracture site and secured with a bicortical screw distal to the fracture site, rotation and placement confirmed, and secured proximally with an additional bicortical screw. An additional 2 bicortical 3.5 mm cortex screws were placed with the most proximal one divergent away from the construct at more length. The most distal screw hole was drilled taking care to just barely tapped through the far cortex and placed a 3.5 mm bicortical screw to fully compress and bend the distal aspect of the tip around the lateral malleolus. The remaining distal screw was drilled similarly just barely bicortically and placed within under lengthed 4.0 mm cancellous screw. The most distal cortex was removed and replaced with similarly slightly under lengthed 4.0 mm cancellous screw. The construct was tested and had excellent fixation strength. At the anterior margin at the syndesmosis there was intact ríos fibers and a small avulsion fragment that was well reduced and opposed against this fibular construct. The medial malleolus was then approached similarly through the skin retracting neurovascular structures and exposing the fracture site. It was gapped open and the joint was copiously irrigated to remove small osseous and chondral loose fragments. Interposed periosteum was excised from the fracture margin to allow for visual reduction. The fracture was clamped in anatomic position. A single central from distal obliquely proximal solid 4.0 mm partially-threaded cancellous screw was predrilled and then placed with fluoroscopic guidance. Clamp was removed the medial malleolus was stable. Fluoroscopic exam was used to confirm stable ankle mortise. There is a small posterior malleolus fragment that was in acceptable position. There was excellent mortise symmetry, no medial clear space widening, and good tib-fib overlap on AP views. The mortise stress view had maybe 1 mm of tib-fib overlap. In order to ensure the syndesmosis was stable enough to avoid syndesmotic fixation and additional cotton test with a clamp was done laterally did not demonstrate any significant widening of the tib-fib joint, asymmetry of the mortise, or medial clear space widening. Syndesmosis was deemed stable. Both incisions were copiously irrigated normal saline. Subcutaneous tissue was closed using 2-0 Monocryl buried interrupted. Skin was closed using 3-0 nylon horizontal mattresses. The leg was cleansed with hydrogen peroxide. Xeroform applied over the incisions followed by 4 x 4 gauze and ABD pad and sterile soft roll. A short leg AO plaster splint was then applied to the the extremity maintaining the foot and ankle in neutral position. The patient awoke from anesthesia without complication and was transferred to the recovery room in a stable condition.
[2022-10-13] MEDS: ceFAZolin 2 GM/50 ML BAG IVPB (13:14)
[2022-10-13] MEDS: Bupivacaine 0.5% Pres-Free W/EPI 30 ML VIAL (13:58)
--- NOTE | 2022-10-13 16:22 | W.ANESPOSTOP ---
Postoperative Evaluation Date, Time and Location Date Performed: 10/13/22 Time Performed: 16:22 Patient Location: Day Surgery Unit Vital Signs Most Recent Imported Vital Signs: Most Recent Vital Signs Temp Pulse Resp BP Pulse Ox 36.6 C 68 16 127/80 97 10/13/22 16:16 10/13/22 16:16 10/13/22 16:16 10/13/22 16:16 10/13/22 16:16 Pain Score Most Recent Pain Score: Most Recent Pain Score Pain Level 0 10/13/22 16:04 Assessment Mental Status: Awake (Alert & Oriented to Patient Baseline) Airway and Respiratory Function: Patent airway with normal (patient baseline) respiratory exam Cardiovascular Function: Hemodynamically Stable Hydration Status: Adequately Hydrated Nausea & Vomiting: No Nausea or Vomiting Pain: Pt. Denies Any Pain Peripheral Nerve Block: Patient did not receive a nerve block Postoperative Comments:: Spinal wearing off appropriately discussed need to void prior to going home. No pain at this time. Discussed that rescue block still an option
== END 2022-10-13 18:20 | disposition home or self-care (01) ==
LOC: ER 10:20 → SUR 10:21
PROVIDERS: Emergency Provider Emergency Medicine; Visit Provider Student in an Organized Health Care Education/Training Program
PROC: (CPT 27822; principal; 2022-10-13 11:45)
DX: S82.851A Displaced trimalleolar fracture of right lower leg, initial encounter for closed fracture (principal); W01.0XXA Fall on same level from slipping, tripping and stumbling without subsequent striking against object, initial encounter; Z20.822 Contact with and (suspected) exposure to COVID-19
CPT/HCPCS: 27822; 27810; 76000; 87635; 93005; 96374; 96376; 73600; 93010; J0131; J0690; J1100; J1885; J2250; J2405; J2704; J3010

== ENCOUNTER 2022-10-24 15:53 | Outpatient (CLI) | payer BC, SELFPAY ==
--- NOTE | 2022-10-24 15:15 | DI.RAD_ITS ---
Exam(s) XR ANKLE RT COMPLETE EXAM: XR ANKLE RT COMPLETE CLINICAL HISTORY: right ankle ORIF. TECHNIQUE: 2D digital imaging was performed. Three images were obtained. AP, lateral and oblique vi ews were obtained. COMPARISON: XR ANKLE RT 2V from 10/13/2022 CR XR ANKLE RT 2V from 10/13/2022 FINDINGS: BONES: There are stable post operative changes present. No new fracture or dislocation. JOINTS: The joint spaces are well maintained. SOFT TISSUE: Soft tissue swelling is seen around the ankle. IMPRESSION: Stable postoperative changes. DATA REPOSITORY: RADIATION DOSE DELIVERED:
== END 2022-10-24 15:54 | disposition home or self-care (01) ==
LOC: DIORS 15:53
PROVIDERS: PCP Internal Medicine; Referring Provider Internal Medicine; Visit Provider Physician Assistant
DX: S82.891A Other fracture of right lower leg, initial encounter for closed fracture (principal); X58.XXXA Exposure to other specified factors, initial encounter
CPT/HCPCS: 73610

== ENCOUNTER 2022-11-22 14:59 | Outpatient (CLI) | payer BC, SELFPAY ==
--- NOTE | 2022-11-22 14:38 | DI.RAD_ITS ---
Exam(s) XR ANKLE RT COMPLETE EXAM: XR ANKLE RT COMPLETE CLINICAL HISTORY: RIGHT ANKLE F/U. TECHNIQUE: 2D digital imaging was performed. Six images were obtained. AP, lateral and oblique view s were obtained. COMPARISON: CR XR ANKLE RT 2V from 10/13/2022 CR XR ANKLE RT 2V from 10/13/2022 CR XR ANKLE RT COMPLETE from 10/24/2022 FINDINGS: BONES: There are stable post operative changes present. There is side plates and screws seen transfi cierra the distal fibular and tibial fractures. The fracture lines are less well visualized. No new f racture or dislocation. JOINTS: The joint spaces are well maintained. No joint effusion is present. SOFT TISSUE: Normal. IMPRESSION: Stable postoperative changes. DATA REPOSITORY: RADIATION DOSE DELIVERED:
== END 2022-11-22 15:00 | disposition home or self-care (01) ==
LOC: DIORS 14:59
PROVIDERS: PCP Internal Medicine; Referring Provider Internal Medicine; Visit Provider Student in an Organized Health Care Education/Training Program
DX: S82.851D Displaced trimalleolar fracture of right lower leg, subsequent encounter for closed fracture with routine healing (principal); X58.XXXD Exposure to other specified factors, subsequent encounter
CPT/HCPCS: 73610

== ENCOUNTER 2022-12-27 15:18 | Outpatient (CLI) | payer BC, SELFPAY ==
--- NOTE | 2022-12-27 14:30 | DI.RAD_ITS ---
Exam(s) XR ANKLE RT COMPLETE EXAM: XR ANKLE RT COMPLETE INDICATION: f/u fx. COMPARISON: CR XR ANKLE RT COMPLETE from 11/22/2022 TECHNIQUE: 2D digital imaging was performed. Two views. FINDINGS: There has been no change in the hardware. No new bony abnormality. soft tissue swelling remains pre sent. DATA REPOSITORY: RADIATION DOSE DELIVERED:
== END 2022-12-27 15:19 | disposition home or self-care (01) ==
LOC: DIORS 15:19
PROVIDERS: PCP Internal Medicine; Visit Provider Student in an Organized Health Care Education/Training Program
DX: M79.89 Other specified soft tissue disorders; S82.851D Displaced trimalleolar fracture of right lower leg, subsequent encounter for closed fracture with routine healing; X58.XXXD Exposure to other specified factors, subsequent encounter
CPT/HCPCS: 73610